=== PATIENT | female | born 1980 | race Two or more races ===

== ENCOUNTER 2017-10-08 13:25 | Emergency (ER) | payer MEDICAID, OTHER ==
[~2017-10-08] VITALS: Ht 160 cm; Wt 81.6 kg
[2017-10-08] MEDS ORDERED: cloNIDine HCL 0.1 MG TAB ONE (13:51)
[2017-10-08] MEDS ORDERED: cloNIDine HCL 0.1 MG TAB PO ONE (14:00)
[2017-10-08 14:02] VITALS: BP 237/160
[2017-10-08] MEDS ORDERED: HYDROcodone-ACET 7.5/325MG TAB PO ONE (16:15)
== END 2017-10-08 16:52 | disposition home or self-care (01) ==
LOC: ER 13:25
DX: S83.8X2A Sprain of other specified parts of left knee, initial encounter (principal); I10 Essential (primary) hypertension; E07.89 Other specified disorders of thyroid; Z98.51 Tubal ligation status; W19.XXXA Unspecified fall, initial encounter; Y93.89 Activity, other specified; Y99.8 Other external cause status; Y92.89 Other specified places as the place of occurrence of the external cause
CPT/HCPCS: 73562

== ENCOUNTER 2018-01-15 11:07 | Inpatient (IN) | payer MEDICAID, OTHER ==
[~2018-01-15] VITALS: Ht 160 cm; Wt 87.0 kg
[2018-01-15] MEDS ORDERED: cloNIDine HCL 0.1 MG TAB ONE (11:26)
[2018-01-15] MEDS ORDERED: cloNIDine HCL 0.1 MG TAB PO ONE (11:30)
[2018-01-15 12:12] LABS: Basophils # (auto) 0 uL; Basophils % (auto) 0.1 % (0.0-2.0); Eosinophils # (auto) 0 uL; Eosinophils % (auto) 0.1 % (0.0-7.0); Hematocrit 38.7 % (36.0-46.0); Hemoglobin 13.2 g/dL (12.2-16.2); Lymphocytes # (auto) 0.9 uL; Lymphocytes % (auto) 7.1 % (10.0-50.0); Mean Corpuscular Hemoglobin 30.3 pg (28.0-32.0); Monocytes # (auto) 0.6 uL; Monocytes % (auto) 4.9 % (0.0-12.0); Neutrophils # (auto) 11.3 uL; Neutrophils % (auto) 87.8 % (37.0-80.0); Nucleated Red Blood Cells % 0.1 %; Platelet Count (auto) 270 10^3/uL (140-450); Red Blood Cells 4.34 10^6/uL (4.0-5.20); White Blood Cell 12.9 10^3/uL (4.4-10.8)
[2018-01-15 12:30] LABS: Alanine Aminotransferase 22 U/L (13-56); Albumin 3.6 g/dL (3.4-5.0); Anion Gap 10 (5-15); Aspartate Aminotransferase 11 U/L (15-37); BUN/Creatinine Ratio 12.7; Blood Urea Nitrogen 8 mg/dL (7-18); Calcium 8.8 mg/dL (8.5-10.1); Carbon Dioxide 25 mmol/L (21-32); Chloride 101 mmol/L (98-107); GFR African American 136 mL/min; GFR Non-African American 112 mL/min; Glucose 154 mg/dL (74-106); Potassium 3.3 mmol/L (3.5-5.1); Sodium 136 mmol/L (136-145)
[2018-01-15] MEDS ORDERED: LORazepam 2MG/ML-1ML VIAL IV ONE (12:30)
[2018-01-15] MEDS ORDERED: LABETALOL HCL 5 MG/ML ML 20ML VIAL IV ONE (12:30)
[2018-01-15 12:39] LABS: Alkaline Phosphatase 69 U/L (45-117); Bilirubin, Total 0.5 mg/dL (0.2-1.0); Total Protein 8.2 g/dL (6.4-8.2)
[2018-01-15] MEDS ORDERED: hydrALAZINE HCL 20 MG/ML VL IV ONE (12:45)
[2018-01-15] MEDS: NICARDIPINE 25MG/250ML BAG KIT 250 ML IV SCH ×2 (14:58→18:20)
[2018-01-15] MEDS ORDERED: NITROGLYCERIN 0.4 MG SL TAB SL PRN (16:30)
[2018-01-15] MEDS ORDERED: LACTULOSE 20Gm/30ML SOLN PO PRN (16:30)
[2018-01-15] MEDS ORDERED: cefTRIAXone 1GM/10ml IVPUSH 10 ML IV ONE (16:30)
[2018-01-15] MEDS ORDERED: MORPHINE SULFATE 8mg/ml INJ SDV IV PRN (16:30)
[2018-01-15] MEDS ORDERED: DEXTROSE (50%) 50ML SYRG IV PRN (16:30)
[2018-01-15] MEDS: KETOROLAC TROMETH 30 MG/ML 1ML VIAL IV PRN (17:42)
[2018-01-15] MEDS: ACCU-CHEK COMFORT CURVE STRIP VI SCH (18:24)
[2018-01-15] MEDS ORDERED: POTASSIUM CHL 20 Meq TABLET PO ONE (18:30)
[2018-01-15 18:32] LABS: CRP High Sensitivity 9.39 mg/dL (< 0.3)
[2018-01-15] MEDS: FAMOTIDINE 20 MG TAB PO SCH (23:07)
[2018-01-15] MEDS: CARVEDILOL 3.125 MG TAB PO SCH (23:07)
[2018-01-15] MEDS ORDERED: HYDROcodone-ACET 10/325MG TAB PO ONE (23:30)
[2018-01-16] MEDS: ACCU-CHEK COMFORT CURVE STRIP VI SCH ×5 (00:22→23:38)
[2018-01-16] MEDS: NICARDIPINE 25MG/250ML BAG KIT 250 ML IV SCH ×4 (00:27→15:39)
[2018-01-16] MEDS ORDERED: ONDANSETRON HCL 4 MG/2 ML VIAL IV PRN (02:30)
[2018-01-16 05:33] LABS: Basophils # (auto) 0 uL; Eosinophils # (auto) 0 uL; Eosinophils % (auto) 0.2 % (0.0-7.0); Hematocrit 35.5 % (36.0-46.0); Hemoglobin 12.3 g/dL (12.2-16.2); Lymphocytes # (auto) 0.8 uL; Lymphocytes % (auto) 6.6 % (10.0-50.0); Mean Corpuscular Hemoglobin 31.1 pg (28.0-32.0); Mean Corpuscular Hgb Conc. 34.6 g/dL (32.0-36.0); Mean Corpuscular Volume 89.8 fL (80.0-100.0); Monocytes # (auto) 0.7 uL; Monocytes % (auto) 5.4 % (0.0-12.0); Neutrophils # (auto) 11.1 uL; Neutrophils % (auto) 87.8 % (37.0-80.0); Platelet Count (auto) 248 10^3/uL (140-450); Red Blood Cells 3.95 10^6/uL (4.0-5.20); Red Cell Distribution Width 13.3 % (11.8-14.3); White Blood Cell 12.6 10^3/uL (4.4-10.8)
[2018-01-16 05:52] LABS: Cholesterol 170 mg/dL (< 200); HDL Cholesterol 50 mg/dL (40-59); LDL Cholesterol 110 mg/dL (< 100); Triglycerides 104 mg/dL (< 150)
[2018-01-16 08:11] LABS: Urine Bacteria NONE SEEN /hpf (None Seen); Urine Blood Negative /uL (Negative); Urine Mucus FEW (None Seen); Urine Specific Gravity 1.022 (1.001-1.035); Urine WBC 10 /hpf (0 - 5)
[2018-01-16 08:19] LABS: Alcohol, Urine < 3.0 mg/dL (0-5); Amphetamine Screen, Urine NEGATIVE (NEGATIVE); Barbiturate Scree,Urine NEGATIVE (NEGATIVE); Benzodiazephine Screen, Urine NEGATIVE (NEGATIVE); Cannabinoid Screen, Urine NEGATIVE (NEGATIVE); Cocaine Screen, Urine NEGATIVE (NEGATIVE); Opiate Scree,Urine POSITIVE (NEGATIVE); Phencyclidine Screen, Urine NEGATIVE (NEGATIVE)
[2018-01-16] MEDS: ACETAMINOPHEN 500 MG TAB PO PRN (08:40)
[2018-01-16] MEDS: cefTRIAXone 1GM/10ml IVPUSH 10 ML IV SCH (09:30)
[2018-01-16] MEDS: CARVEDILOL 3.125 MG TAB PO SCH ×2 (10:25→21:38)
[2018-01-16] MEDS: FAMOTIDINE 20 MG TAB PO SCH ×2 (10:25→21:38)
[2018-01-16] MEDS: ENALAPRIL MALEATE 2.5 MG TAB PO SCH (10:26)
[2018-01-16] MEDS: PANTOPRAZOLE 40 MG TAB PO SCH (10:26)
[2018-01-16] MEDS: KETOROLAC TROMETH 30 MG/ML 1ML VIAL IV PRN (16:51)
[2018-01-16 17:50] VITALS: BP 104/65
[2018-01-16] MEDS: IBUPROFEN 400 MG TAB PO PRN (19:58)
[2018-01-16 22:00] VITALS: BP 124/66
[2018-01-17 05:00] VITALS: BP 130/75
[2018-01-17] MEDS: ACCU-CHEK COMFORT CURVE STRIP VI SCH (05:32)
[2018-01-17 06:34] LABS: Basophils # (auto) 0 uL; Basophils % (auto) 0.2 % (0.0-2.0); Eosinophils # (auto) 0.1 uL; Eosinophils % (auto) 1.5 % (0.0-7.0); Hematocrit 35.9 % (36.0-46.0); Hemoglobin 12.7 g/dL (12.2-16.2); Lymphocytes # (auto) 1.8 uL; Lymphocytes % (auto) 25.2 % (10.0-50.0); Mean Corpuscular Hemoglobin 31.8 pg (28.0-32.0); Mean Corpuscular Hgb Conc. 35.4 g/dL (32.0-36.0); Mean Corpuscular Volume 89.6 fL (80.0-100.0); Monocytes # (auto) 0.7 uL; Monocytes % (auto) 9.7 % (0.0-12.0); Neutrophils # (auto) 4.4 uL; Neutrophils % (auto) 63.4 % (37.0-80.0); Platelet Count (auto) 269 10^3/uL (140-450); Potassium 3.4 mmol/L (3.5-5.1); Red Blood Cells 4.01 10^6/uL (4.0-5.20); Red Cell Distribution Width 13.1 % (11.8-14.3)
[2018-01-17 06:41] LABS: BUN/Creatinine Ratio 22.1; Magnesium 2.3 mg/dL (1.6-2.6)
[2018-01-17 08:00] VITALS: BP 128/76
[2018-01-17] MEDS: ACETAMINOPHEN 500 MG TAB PO PRN (08:19)
[2018-01-17] MEDS: cefTRIAXone 1GM/10ml IVPUSH 10 ML IV SCH (08:20)
[2018-01-17] MEDS: PANTOPRAZOLE 40 MG TAB PO SCH (09:44)
[2018-01-17] MEDS: CARVEDILOL 3.125 MG TAB PO SCH (09:45)
[2018-01-17] MEDS: FAMOTIDINE 20 MG TAB PO SCH (09:46)
[2018-01-17] MEDS: IBUPROFEN 400 MG TAB PO PRN (09:46)
[2018-01-17] MEDS: ENALAPRIL MALEATE 2.5 MG TAB PO SCH (09:46)
[2018-01-17] MEDS ORDERED: MET25T PO (11:23)
[2018-01-17] MEDS ORDERED: LISI-646 PO (11:23)
[2018-01-17 12:00] VITALS: BP 136/92
== END 2018-01-17 14:20 | disposition home or self-care (01) | DRG 199 ==
LOC: ER 11:12 → OVERFLOW 11:13 → TELE-CENTR 01-16 17:49
PROVIDERS: ADMIT Internal Medicine; ATTEND Internal Medicine
DX: I16.0 Hypertensive urgency (principal); I50.30 Unspecified diastolic (congestive) heart failure; E87.6 Hypokalemia; E66.9 Obesity, unspecified; I11.0 Hypertensive heart disease with heart failure; I16.1 Hypertensive emergency; J32.9 Chronic sinusitis, unspecified; R73.9 Hyperglycemia, unspecified; R10.9 Unspecified abdominal pain; Z82.49 Family history of ischemic heart disease and other diseases of the circulatory system; Z91.14 Patient's other noncompliance with medication regimen; Z98.51 Tubal ligation status; Z68.34 Body mass index [BMI] 34.0-34.9, adult
CPT/HCPCS: 36415; 70450; 71045; 74176; 80048; 80053; 80061; 80307; 81001; 82150; 82550; 82962; 83036; 83690; 83735; 83880; 84443; 84484; 85025; 85379; 85652; 86141; 87086; 93306; 94761; 96374; 96375; G0378; J1885; J2270; J2405

== ENCOUNTER 2018-09-10 12:49 | Emergency (ER) | payer MEDICAID ==
[~2018-09-10] VITALS: Ht 154.9 cm; Wt 74.8 kg
[~2018-09-10 12:49] MED LIST: LISI-646 PO; MET25T PO
[2018-09-10] MEDS ORDERED: cloNIDine HCL 0.1 MG TAB ONE (13:24)
[2018-09-10] MEDS ORDERED: SODIUM CHLORIDE 0.9% 1,000 ML IV ONE (13:27)
[2018-09-10] MEDS ORDERED: cloNIDine HCL 0.1 MG TAB PO ONE (13:30)
[2018-09-10] MEDS ORDERED: SUMAtriptan SUCCINATE 6 MG/0.5 ML VL SC ONE (13:30)
[2018-09-10 14:12] LABS: Basophils # (auto) 0 uL; Basophils % (auto) 0.4 % (0.0-2.0); Eosinophils # (auto) 0.1 uL; Eosinophils % (auto) 0.8 % (0.0-7.0); Hemoglobin 12.9 g/dL (12.2-16.2); Lymphocytes # (auto) 1.7 uL; Lymphocytes % (auto) 18.8 % (10.0-50.0); Mean Corpuscular Volume 91.1 fL (80.0-100.0); Monocytes # (auto) 0.8 uL; Monocytes % (auto) 8.8 % (0.0-12.0); Neutrophils # (auto) 6.6 uL; Neutrophils % (auto) 71.2 % (37.0-80.0); Platelet Count (auto) 320 10^3/uL (140-450); Red Blood Cells 4.17 10^6/uL (4.0-5.20); White Blood Cell 9.2 10^3/uL (4.4-10.8)
[2018-09-10 14:37] LABS: Alanine Aminotransferase 39 U/L (13-56); Albumin 3.7 g/dL (3.4-5.0); Anion Gap 6 (5-15); BUN/Creatinine Ratio 14.7; Blood Urea Nitrogen 10 mg/dL (7-18); Calcium 8.4 mg/dL (8.5-10.1); Carbon Dioxide 26 mmol/L (21-32); Chloride 103 mmol/L (98-107); GFR African American > 60 mL/min; GFR Non-African American > 60 mL/min; Glucose 156 mg/dL (74-106); Potassium 3.4 mmol/L (3.5-5.1); Sodium 135 mmol/L (136-145)
[2018-09-10 14:44] LABS: Alkaline Phosphatase 81 U/L (45-117); Aspartate Aminotransferase 22 U/L (15-37); Bilirubin, Total 0.4 mg/dL (0.2-1.0)
[2018-09-10] MEDS ORDERED: hydrALAZINE HCL 20 MG/ML VL IV ONE (14:45)
[2018-09-10] MEDS ORDERED: LABETALOL HCL 5 MG/ML ML 20ML VIAL IV ONE (14:45)
[2018-09-10] MEDS ORDERED: LIDOCAINE 2% (LOCAL ANESTH.) PF 5ml SDV ONE (14:52)
[2018-09-10 15:07] LABS: Urine Bacteria NONE SEEN /hpf (None Seen); Urine Blood Negative /uL (Negative); Urine Specific Gravity 1.006 (1.001-1.035); Urine WBC 1 /hpf (0 - 5)
[2018-09-10] MEDS ORDERED: amLODIPine BESYLATE 5 MG TAB PO ONE (15:15)
[2018-09-10 17:14] VITALS: BP 162/96
== END 2018-09-10 17:28 | disposition home or self-care (01) ==
LOC: ER 12:51
DX: I10 Essential (primary) hypertension (principal); R42 Dizziness and giddiness; R51 Headache; Z86.39 Personal history of other endocrine, nutritional and metabolic disease; Z98.51 Tubal ligation status
CPT/HCPCS: 36415; 70450; 80053; 81001; 84484; 85025; 93005; 96360; 96372; 99284; J2001; J3030; J7030

== ENCOUNTER 2018-09-11 16:33 | Emergency (ER) | payer MEDICAID ==
[~2018-09-11] VITALS: Ht 154.9 cm; Wt 127.0 kg
[2018-09-11] MEDS ORDERED: cloNIDine HCL 0.1 MG TAB ONE (17:12)
[2018-09-11] MEDS ORDERED: cloNIDine HCL 0.1 MG TAB PO ONE (17:15)
[2018-09-11] MEDS ORDERED: amLODIPine BESYLATE 5 MG TAB ONE (17:19)
[2018-09-11 17:29] VITALS: BP 141/70
[2018-09-11] MEDS ORDERED: amLODIPine BESYLATE 5 MG TAB PO ONE (17:30)
== END 2018-09-11 17:29 | disposition left against medical advice (07) ==
LOC: ER 16:37
DX: I10 Essential (primary) hypertension (principal); R11.2 Nausea with vomiting, unspecified; E07.9 Disorder of thyroid, unspecified; Z79.899 Other long term (current) drug therapy; Z98.51 Tubal ligation status; Z53.29 Procedure and treatment not carried out because of patient's decision for other reasons

== ENCOUNTER 2020-10-26 12:58 | Emergency (ER) | payer MEDICAID ==
[~2020-10-26] VITALS: Ht 154.9 cm; Wt 77.6 kg
[~2020-10-26 12:58] MED LIST changes: +AMLO10CA33 PO; +FER325T PO; +GLIP5TAB12 PO; +HYDR12.56 PO; +LEV50T PO; +METF-372 PO
[2020-10-26] MEDS ORDERED: hydrALAZINE HCL 20 MG/ML VL IV ONE (13:30)
[2020-10-26 14:01] LABS: Basophils # (auto) 0 10 ^3/uL (0-0.2); Basophils % (auto) 0.3 % (0.0-2.0); Eosinophils # (auto) 0.1 10 ^3/uL (0-0.8); Eosinophils % (auto) 0.8 % (0.0-7.0); Hematocrit 42.9 % (36.0-46.0); Hemoglobin 14.7 g/dL (12.2-16.2); Lymphocytes % (auto) 26.5 % (10.0-50.0); Mean Corpuscular Hemoglobin 30.9 pg (28.0-32.0); Mean Corpuscular Hgb Conc. 34.2 g/dL (32.0-36.0); Mean Corpuscular Volume 90.2 fL (80.0-100.0); Monocytes # (auto) 0.4 10 ^3/uL (0-1.3); Monocytes % (auto) 5.2 % (0.0-12.0); Neutrophils # (auto) 5.1 10 ^3/uL (1.6-8.6); Neutrophils % (auto) 67.2 % (37.0-80.0); Platelet Count (auto) 293 10^3/uL (140-450); Red Blood Cells 4.76 10^6/uL (4.0-5.20); Red Cell Distribution Width 12.1 % (11.8-14.3); White Blood Cell 7.6 10^3/uL (4.4-10.8)
[2020-10-26 14:08] LABS: Urine Bacteria NONE SEEN /hpf (None Seen); Urine Blood Negative /uL (Negative); Urine Mucus FEW (None Seen); Urine Specific Gravity 1.035 (1.001-1.035); Urine Sperm PRESENT /hpf (None Seen); Urine WBC 4 /hpf (0 - 5)
[2020-10-26 14:18] LABS: BUN/Creatinine Ratio 13.4; Calcium 8.7 mg/dL (8.5-10.1); Potassium 3.9 mmol/L (3.5-5.1)
[2020-10-26 14:48] VITALS: BP 150/93
== END 2020-10-26 15:05 | disposition home or self-care (01) ==
LOC: ER 12:58
DX: I16.0 Hypertensive urgency (principal); I10 Essential (primary) hypertension; E03.9 Hypothyroidism, unspecified; Z91.14 Patient's other noncompliance with medication regimen; Z98.51 Tubal ligation status
CPT/HCPCS: 36415; 80048; 81001; 84443; 85025; 93005; 96374; 99284; J0360

== ENCOUNTER 2021-12-31 20:28 | Emergency (ER) | payer MEDICAID ==
[~2021-12-31] VITALS: Ht 154.9 cm; Wt 65.8 kg
[~2021-12-31 20:28] MED LIST changes: -LISI-646 PO; +LISI20TA28 PO
[2021-12-31] MEDS ORDERED: hydrALAZINE HCL 20 MG/ML VL IV ONE (20:45)
[2021-12-31 22:07] LABS: Basophils # (auto) 0 10 ^3/uL (0-0.2); Basophils % (auto) 0.4 % (0.0-2.0); Eosinophils # (auto) 0.2 10 ^3/uL (0-0.8); Eosinophils % (auto) 1.7 % (0.0-7.0); Hemoglobin 10.7 g/dL (12.2-16.2); Lymphocytes # (auto) 2.8 10 ^3/uL (0.4-5.4); Lymphocytes % (auto) 25.7 % (10.0-50.0); Mean Corpuscular Hemoglobin 29.1 pg (28.0-32.0); Mean Corpuscular Hgb Conc. 34.4 g/dL (32.0-36.0); Mean Corpuscular Volume 84.6 fL (80.0-100.0); Monocytes # (auto) 0.7 10 ^3/uL (0-1.3); Monocytes % (auto) 6.6 % (0.0-12.0); Neutrophils % (auto) 65.6 % (37.0-80.0); Nucleated Red Blood Cells % 0.1 %; Red Blood Cells 3.67 10^6/uL (4.0-5.20); Red Cell Distribution Width 14.4 % (11.8-14.3); White Blood Cell 10.7 10^3/uL (4.4-10.8)
[2021-12-31 22:26] LABS: Albumin 3.5 g/dL (3.4-5.0); BUN/Creatinine Ratio 17.3; Calcium 8.1 mg/dL (8.5-10.1); Potassium 3.9 mmol/L (3.5-5.1)
[2021-12-31 22:30] LABS: Bilirubin, Total 0.3 mg/dL (0.2-1.0); Total Protein 7.5 g/dL (6.4-8.2)
[2021-12-31] MEDS ORDERED: MORPHINE SULFATE 4 MG/ML SYR/VIAL IV ONE (23:45)
[2021-12-31] MEDS ORDERED: ONDANSETRON HCL 4 MG/2 ML VIAL IM ONE (23:45)
[2021-12-31] MEDS ORDERED: LABETALOL HCL 5 MG/ML 4ML SYRINGE IV ONE (23:45)
[2022-01-01 00:38] LABS: Urine Bacteria None Seen /hpf (None Seen); Urine WBC None Seen /hpf (0 - 5)
[2022-01-01 01:13] LABS: Urine Blood Trace /uL (Negative); Urine Specific Gravity 1.013 (1.001-1.035)
[2022-01-01] MEDS ORDERED: LABETALOL HCL 200 MG TAB PO ONE (01:15)
[2022-01-01 03:00] VITALS: BP 133/81
== END 2022-01-01 04:15 | disposition home or self-care (01) ==
LOC: ER 20:28
DX: I10 Essential (primary) hypertension (principal); D64.9 Anemia, unspecified; E03.9 Hypothyroidism, unspecified; E78.5 Hyperlipidemia, unspecified; Z79.899 Other long term (current) drug therapy
CPT/HCPCS: 36415; 70450; 76830; 76856; 80053; 81001; 84484; 84702; 85025; 86850; 86900; 86901; 93005; 96372; 96374; 96375; 99285; J0360; J2270; J2405; J3490

== ENCOUNTER 2022-01-15 21:46 | Emergency (ER) | payer MEDICAID ==
[~2022-01-15] VITALS: Ht 154.9 cm; Wt 65.8 kg
[2022-01-15 21:46] VITALS: BP 230/140
[2022-01-15] MEDS ORDERED: EPINEPHrine HCL 1 MG/1 ML AMP IM ONE (22:00)
[2022-01-15] MEDS ORDERED: ASPirin 325 MG TAB PO ONE (22:00)
[2022-01-15] MEDS ORDERED: diphenhdrAMINE HCL 50 MG/1 ML VL IM ONE (22:00)
[2022-01-15 22:46] LABS: Basophils # (auto) 0.1 10 ^3/uL (0-0.2); Basophils % (auto) 0.3 % (0.0-2.0); Eosinophils # (auto) 0.1 10 ^3/uL (0-0.8); Eosinophils % (auto) 0.4 % (0.0-7.0); Hematocrit 35.1 % (36.0-46.0); Hemoglobin 11.3 g/dL (12.2-16.2); Lymphocytes # (auto) 4.6 10 ^3/uL (0.4-5.4); Lymphocytes % (auto) 26.3 % (10.0-50.0); Mean Corpuscular Hemoglobin 27.3 pg (28.0-32.0); Mean Corpuscular Hgb Conc. 32.4 g/dL (32.0-36.0); Mean Corpuscular Volume 84.5 fL (80.0-100.0); Monocytes # (auto) 1.1 10 ^3/uL (0-1.3); Monocytes % (auto) 6.6 % (0.0-12.0); Neutrophils # (auto) 11.6 10 ^3/uL (1.6-8.6); Neutrophils % (auto) 66.4 % (37.0-80.0); Nucleated Red Blood Cells % 0.1 %; Red Blood Cells 4.15 10^6/uL (4.0-5.20); Red Cell Distribution Width 14.5 % (11.8-14.3); White Blood Cell 17.5 10^3/uL (4.4-10.8)
[2022-01-15 23:00] LABS: Albumin 3.8 g/dL (3.4-5.0); Calcium 9.3 mg/dL (8.5-10.1); Magnesium 2.2 mg/dL (1.6-2.6)
[2022-01-15 23:07] LABS: Potassium 2.9 mmol/L (3.5-5.1)
[2022-01-15 23:09] LABS: BUN/Creatinine Ratio 12.5; Bilirubin, Total 0.4 mg/dL (0.2-1.0)
[2022-01-15] MEDS ORDERED: POTASSIUM EFFERVESENT TAB 25 MEQ PO ONE (23:15)
== END 2022-01-16 01:50 | disposition left against medical advice (07) ==
LOC: ER 21:46
DX: R06.02 Shortness of breath (principal); R07.9 Chest pain, unspecified; Z53.21 Procedure and treatment not carried out due to patient leaving prior to being seen by health care provider
CPT/HCPCS: 36415; 71045; 80053; 83735; 83880; 84443; 84484; 85025; 93005; J0171; J1200

== ENCOUNTER 2022-11-20 11:50 | Emergency (ER) | payer MEDICAID ==
[~2022-11-20] VITALS: Ht 154.9 cm; Wt 76.3 kg
[2022-11-20] MEDS ORDERED: hydrALAZINE HCL 20 MG/ML VL IV ONE ×2 (12:15→16:00)
[2022-11-20] MEDS ORDERED: ACETAMINOPHEN 500 MG TAB PO ONE (13:00)
[2022-11-20 14:18] LABS: Basophils # (auto) 0 10 ^3/uL (0-0.2); Basophils % (auto) 0.5 % (0.0-2.0); Eosinophils # (auto) 0.1 10 ^3/uL (0-0.8); White Blood Cell 7.3 10^3/uL (4.4-10.8)
[2022-11-20 14:21] LABS: Eosinophils % (auto) 1.3 % (0.0-7.0); Hematocrit 30.6 % (36.0-46.0); Hemoglobin 9.7 g/dL (12.2-16.2); Lymphocytes # (auto) 1.6 10 ^3/uL (0.4-5.4); Lymphocytes % (auto) 21.5 % (10.0-50.0); Mean Corpuscular Hemoglobin 23.2 pg (28.0-32.0); Mean Corpuscular Hgb Conc. 31.8 g/dL (32.0-36.0); Mean Corpuscular Volume 73.1 fL (80.0-100.0); Monocytes # (auto) 0.6 10 ^3/uL (0-1.3); Monocytes % (auto) 8.1 % (0.0-12.0); Neutrophils % (auto) 68.6 % (37.0-80.0); Nucleated Red Blood Cells % 0.3 %; Red Blood Cells 4.19 10^6/uL (4.0-5.20)
[2022-11-20 14:39] LABS: BUN/Creatinine Ratio 18.5 (10.0-20.0); Calcium 8.9 mg/dL (8.5-10.1); Potassium 3.9 mmol/L (3.5-5.1)
[2022-11-20] MEDS ORDERED: LABETALOL HCL 5 MG/ML 4ML SYRINGE IV ONE (17:30)
[2022-11-20 17:56] VITALS: BP 129/63
[2022-11-20] MEDS ORDERED: LISI20TA28 PO (18:02)
[2022-11-20] MEDS ORDERED: HYDR25TA5 PO (18:02)
== END 2022-11-20 18:11 | disposition home or self-care (01) ==
LOC: ER 11:50 → EDUNIT# 11:50 → ER 18:11
DX: I16.0 Hypertensive urgency (principal); I10 Essential (primary) hypertension; E78.5 Hyperlipidemia, unspecified; R51.9 Headache, unspecified; Z98.51 Tubal ligation status; Z91.14 Patient's other noncompliance with medication regimen
CPT/HCPCS: 36415; 70450; 80048; 85025; 96374; 96375; 96376; 99285; J0360; J3490